=== PATIENT | female | born 1980 | race Caucasian/White ===

== ENCOUNTER → 2018-02-04 | Outpatient (CLI) | payer OTHER | LOC: M WUC 15:48 | DX: R06.02 Shortness of breath (principal); R06.2 Wheezing; M41.34 Thoracogenic scoliosis, thoracic region | CPT/HCPCS: 71046 ==

== ENCOUNTER → 2020-11-02 | Outpatient (REF) | payer OTHER | LOC: M LAB REF 19:18 | PROVIDERS: ATTEND Podiatrist Foot & Ankle Surgery | DX: M85.572 Aneurysmal bone cyst, left ankle and foot (principal) ==

== ENCOUNTER → 2021-01-23 | Outpatient (REF) | payer OTHER ==
[2021-01-23 14:12] LABS: FOLLICLE STIMULATING HORMONE 4.7 mIU/mL; LUTEINIZING HORMONE 11.3 mIU/mL
== END ==
LOC: M LAB REF 12:52
PROVIDERS: ATTEND Family Medicine
DX: N97.9 Female infertility, unspecified (principal)

== ENCOUNTER → 2022-02-13 | Outpatient (CLI) | payer OTHER | LOC: M LAB 07:17 | PROVIDERS: ATTEND Physician Assistant Medical | DX: O99.810 Abnormal glucose complicating pregnancy (principal) ==

== ENCOUNTER → 2025-01-28 | Outpatient (CLI) | payer OTHER ==
[~2025-01-28] MED LIST: E-Z-GAS II EFFERVESCENT PACKET (SODIUM BICARB./CITRIC ACID/SIMETHICONE) As Ordered ONE; E-Z-HD 98% w/w 340 GM SUSP BTL As Ordered ONE; E-Z-PAQUE 96% w/w SUSP 176 GM BTL As Ordered ONE
== END ==
LOC: M RAD 09:52
PROVIDERS: ATTEND Family Medicine
DX: K21.9 Gastro-esophageal reflux disease without esophagitis (principal)